=== PATIENT | female | born 2000 | race Two or more races ===

== ENCOUNTER 2021-01-21 13:40 | Emergency (ER) | payer OTHER ==
[~2021-01-21] VITALS: Ht 154.9 cm; Wt 87.9 kg
--- NOTE | 2021-01-21 14:15 | NUR ---
ASSUMED CARE OF PATIENT. PATIENT REPORTS A RASH ON NECK SINCE December, IT HAS BEEN GETTING WORSE SINCE YESTERDAY. PT ALSO REPORTS LEFT EYE REDNESS/SWELLING. NO AIRWAY COMPROMISE. VS STABLE. CALL LIGHT IN PLACE. WILL CONTINUE TO MONITOR.
[2021-01-21] MEDS ORDERED: FAMOTIDINE 20 MG TABLET PO ONE (14:30)
[2021-01-21] MEDS ORDERED: FAMOTIDINE 20 MG TABLET ONE (14:34)
--- NOTE | 2021-01-21 14:53 | NUR ---
PT RESTING IN ROOM. VS STABLE. CALL LIGHT IN PLACE. WILL CONTINUE TO MONITOR.
[2021-01-21 15:05] VITALS: BP 131/92
--- NOTE | 2021-01-21 15:05 | NUR ---
PT REPORTS SHE IS FEELING BETTER. NO AIRWAY COMPROMISE. PT IS READY FOR DC
== END 2021-01-21 15:07 | disposition home or self-care (01) ==
LOC: ED 15:00
DX: L50.0 Allergic urticaria (principal)
CPT/HCPCS: 99284; J7512; Q0177